=== PATIENT | male | born 1935 | race Hispanic/Latino ===

== ENCOUNTER 2021-01-21 10:55 | Emergency (ER) | payer OTHER ==
[~2021-01-21] VITALS: Ht 172.7 cm; Wt 86.2 kg
[2021-01-21 11:27] VITALS: BP 160/53
[2021-01-21] MEDS ORDERED: OSELTAMIVIR PHOSPHATE 75 MG CAP ONE (12:23)
[2021-01-21] MEDS ORDERED: OSEL75 PO (12:26)
[2021-01-21] MEDS ORDERED: ACET-66 PO (12:26)
[2021-01-21] MEDS ORDERED: OSELTAMIVIR PHOSPHATE 75 MG CAP PO SCH (12:30)
== END 2021-01-21 12:33 | disposition home or self-care (01) ==
LOC: EDBD 10:55 → EDH 10:55
DX: J10.1 Influenza due to other identified influenza virus with other respiratory manifestations (principal); Z20.822 Contact with and (suspected) exposure to COVID-19; Z86.718 Personal history of other venous thrombosis and embolism
CPT/HCPCS: 71045; 87635; 87804 ×2; 99284; C9803

== ENCOUNTER 2022-05-04 12:26 | Emergency (ER) | payer OTHER ==
[~2022-05-04] VITALS: Ht 175.3 cm; Wt 81.6 kg
[~2022-05-04 12:26] MED LIST: ACET-66 PO; OSEL75 PO
[2022-05-04] MEDS ORDERED: ASPIRIN 81MG CHEW TAB PO ONE (13:00)
[2022-05-04 13:09] LABS: BASOPHILS % (AUTO) 0.9 % (0.0-5.0); EOSINOPHILS % (AUTO) 5.5 % (0.0-8.0); HEMATOCRIT 41.9 % (42-54); LYMPHOCYTES % (AUTO) 18.8 % (21.0-51.0); MEAN CORPUSCULAR HEMOGLOBIN 28.9 pg (27.0-33.0); MEAN CORPUSCULAR VOLUME 90.5 fL (79-99); MONOCYTES % (AUTO) 9.6 % (3.0-13.0); NEUTROPHILS % (AUTO) 64.6 % (40.0-77.0); PLATELET COUNT (AUTO) 231 K/uL (130-400); RED BLOOD CELL COUNT(AUTO) 4.63 MIL/uL (4.50-6.20); RED CELL DISTRIBUTION WIDTH 13.8 % (11.0-15.5); WHITE BLOOD COUNT (AUTO) 10.2 K/uL (4.8-10.8)
[2022-05-04 13:20] LABS: CREATININE 1.3 mg/dL (0.5-1.5); POTASSIUM 5.1 mmol/L (3.5-5.1)
[2022-05-04 13:29] LABS: ALBUMIN 3.2 g/dL (3.5-5.0); MAGNESIUM 2.1 mg/dL (1.80-2.40); TOTAL PROTEIN, SERUM 7.1 g/dL (6.0-8.3)
[2022-05-04 14:06] LABS: B-TYPE NATRIURETIC PEPTIDE 39 pg/mL (0-100)
[2022-05-04 15:41] LABS: APPEARANCE,URINE CLEAR (CLEAR); BILIRUBIN,URINE NEGATIVE (NEGATIVE); COLOR,URINE YELLOW (YELLOW); GLUCOSE, URINE (UA) NEGATIVE (NEGATIVE); KETONES,URINE NEGATIVE (NEGATIVE); LEUKOCYTE ESTERASE ,URINE 75 Leu/uL (NEGATIVE); NITRATE,URINE NEGATIVE (NEGATIVE); PROTEIN,URINE NEGATIVE (NEGATIVE); UROBILINOGEN,URINE 0.2 mg/dL (0.2-1.0)
[2022-05-04 15:51] VITALS: BP 138/52
[2022-05-04 16:05] LABS: BACTERIA,URINE RARE /HPF (None Seen); MUCUS,URINE RARE LPF (None Seen); SQUAMOUS EPITHELIAL CELL,UR FEW /HPF (0-2); WBC,URINE 26-50 /HPF (0-1)
== END 2022-05-04 15:55 | disposition home or self-care (01) ==
LOC: EDH 12:26
DX: R10.9 Unspecified abdominal pain (principal); E78.00 Pure hypercholesterolemia, unspecified; R07.89 Other chest pain; R11.0 Nausea; Z86.718 Personal history of other venous thrombosis and embolism
CPT/HCPCS: 36415; 71045; 74176; 80053; 81001; 83735; 83880; 84145; 84484; 85025; 87088; 93005